=== PATIENT | male | born 1960 | race Caucasian/White ===

== ENCOUNTER 2021-04-01 23:52 | Emergency (ER) | payer MEDICARE, BC ==
--- NOTE | 2021-04-01 23:22 | EDM.PDOC ---
ED HPI GENERAL MEDICAL PROBLEM - General Chief Complaint: Laceration Stated Complaint: [facility] Time Seen by Provider: 04/01/21 23:55 Source of Information: Reports: Patient, EMS History Limitations: Reports: No Limitations - History of Present Illness INITIAL COMMENTS - FREE TEXT/NARRATIVE: ED via [facility], fell [place] Forehead laceration above right eye. Asse ssed [id number] .No loss of consciousness. No neck pain. No other injury. bleeding controlled. On ASA daily. No collar on arrival - Related Data Allergies Allergy/AdvReac Type Severity Reaction Status Date / Time No Known Allergies Allergy Verified 04/02/21 00:07 ED ROS GENERAL - Review of Systems Review Of Systems: Comprehensive ROS is negative, except as noted in HPI. ED EXAM, SKIN/RASH Exam: See Below Exam Limited By: No Limitations General Appearance: Alert, No Apparent Distress, Obese Eye Exam: Right Eye: PERRL, Other (upper lid swollen early bruising), Bilateral Eye: EOMI Nose: Normal Inspection Throat/Mouth: Normal Inspection Head: Normocephalic, Facial Swelling (upper right eyebrow laceration) Neck: Normal Inspection, Non-Tender, Full Range of Motion Respiratory/Chest: No Respiratory Distress, Lungs Clear Cardiovascular: Normal Peripheral Pulses, Regular Rate, Rhythm GI/Abdominal: Normal Bowel Sounds, Soft, Non-Tender Extremities: Other (remote ambuation left arm ) Neurological: Alert, Oriented, CN II-XII Intact, Normal Cognition, No Motor/Sensory Deficits Psychiatric: Normal Affect, Normal Mood Skin: Warm, Wound/Incision (right eye brow, 2.25cm outer laceration, medial laceration 1.25cm bleeding controlled on arrival) Location, Skin: Face ED SKIN PROCEDURES - Laceration/Wound Repair Right Lateral Forehead Appearance: Superficial Distal NVT: Neuro & Vascular Intact Anesthetic Type: Local Local Anesthesia - Lidocaine (Xylocaine): 1% with EPI Local Anesthetic Volume: 3cc Skin Prep: Chlorhexidine (Hibiciens), Saline Closed with: Sutures Lac/Wound length In cm: 4 Suture Size: 5-0 # of Sutures: 6 Suture Type: Nylon, Interrupted Course - Orders/Labs/Meds Meds: Medications Discontinued Medications Generic Name Dose Route Start Last Admin Trade Name Freq PRN Reason Stop Dose Admin Bacitracin 1 dose 04/01/21 23:23 Bacitracin Oint 1 Gm U/D Packet TOP 04/01/21 23:24 ONETIME ONE Lidocaine/Epinephrine 20 ml 04/01/21 23:23 Lidocaine 1% With Epinephrine 1:100,000 20 Ml Mdv INJECT 04/01/21 23:24 ONETIME ONE Departure - Departure Time of Disposition: 01:05 Disposition: Home, Self-Care 01 Condition: Good Clinical Impression: Broken skin Fall Qualifiers: Encounter type: initial encounter Qualified Code(s): W19.XXXA - Unspecified fall, initial encounter - Discharge Information *PRESCRIPTION DRUG MONITORING PROGRAM REVIEWED*: No *COPY OF PRESCRIPTION DRUG MONITORING REPORT IN PATIENT MATTHEW: No Instructions: Laceration Care, Adult, [id number], Sutures, Tali, or Adhesive Wound Closure, [id number] Referrals: Rikki Sanford NP [Primary Care Provider] - Forms: ED Department Discharge Additional Instructions: may shower in morning, wash gently with soap and water, pat dry antibiotic ointment to laceration and abrasion at least one time daily sutures out in clinic 10-14 days cold pack to face/forehead follow up if redness swelling or drainage around wounds follow up with primary care on Saturday to check tetnus status
[~2021-04-01 23:52] MED LIST: Bacitracin Oint 1 GM U/D Packet TOP ONE; Lidocaine 1% with EPINEPHrine 1:100,000 20 ML MDV INJECT ONE
[2021-04-01] MEDS ORDERED: Lidocaine 1% with EPINEPHrine 1:100,000 20 ML MDV INJECT ONE (23:53)
[2021-04-01] MEDS ORDERED: Bacitracin Oint 1 GM U/D Packet TOP ONE (23:53)
--- NOTE | 2021-04-02 00:49 | CT ---
PROCEDURE INFORMATION: Exam: CT Head Without Contrast Exam date and time: 04/01/2021 11:56 PM Age: 60 years old Clinical indication: Other: HX skull FX 2016; Additional info: Fall, laceration right eyebrow TECHNIQUE: Imaging protocol: Computed tomography of the head without contrast. Radiation optimization: All CT scans at this facility use at least one of these dose optimization techniques: automated exposure control; mA and/or kV adjustment per patient size (includes targeted exams where dose is matched to clinical indication); or iterative reconstruction. COMPARISON: No relevant prior studies available. FINDINGS: Brain: Loss of underwood white matter differentiation involving the left occipital lobe may represent an age indeterminate infarct or artifact. Consider MRI. No evidence of acute intracranial hemorrhage. There is a mild amount of periventriclar and subcortical white matter decreased attenuation which is nonspecific, however most consistent with chronic microangiopathic changes. Cerebral ventricles: No ventriculomegaly. Paranasal sinuses: Visualized sinuses are unremarkable. No fluid levels. Mastoid air cells: Visualized mastoid air cells are well aerated. Bones/joints: Unremarkable. No acute fracture. Soft tissues: Right periorbital swelling IMPRESSION: Loss of underwood white matter differentiation involving the left occipital lobe may represent an age indeterminate infarct or artifact. Consider MRI. No evidence of acute intracranial hemorrhage.
--- NOTE | 2021-04-02 01:01 | CT ---
PROCEDURE INFORMATION: Exam: CT Cervical Spine Without Contrast Exam date and time: 04/01/2021 11:56 PM Age: 60 years old Clinical indication: Other: Fall; Prior surgery; Additional info: Fall, laceration right eyebrow TECHNIQUE: Imaging protocol: Computed tomography images of the cervical spine without contrast. Radiation optimization: All CT scans at this facility use at least one of these dose optimization techniques: automated exposure control; mA and/or kV adjustment per patient size (includes targeted exams where dose is matched to clinical indication); or iterative reconstruction. COMPARISON: No relevant prior studies available. FINDINGS: Vertebrae: No fracture or subluxation. Moderate cervical degenerative changes. 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 Visualized soft tissues within normal limits. Lungs: Lung apices are normal. IMPRESSION: No fracture or subluxation.
== END 2021-04-02 01:17 | disposition home or self-care (01) ==
LOC: DL.ED 23:52
DX: S01.111A Laceration without foreign body of right eyelid and periocular area, initial encounter (principal); S01.81XA Laceration without foreign body of other part of head, initial encounter; W18.09XA Striking against other object with subsequent fall, initial encounter; Y92.480 Sidewalk as the place of occurrence of the external cause
CPT/HCPCS: 12013; 70450; 72125; 99283-25